=== PATIENT | female | born 1975 | race Caucasian/White ===

== ENCOUNTER 2021-09-02 15:04 | Emergency (ER) | payer OTHER ==
[~2021-09-02] VITALS: Ht 149.9 cm; Wt 57.7 kg
[2021-09-02 15:24] VITALS: BP 150/92
[2021-09-02] MEDS ORDERED: diphenhydrAMINE 50 MG/ML VIAL IVP ONE (16:00)
[2021-09-02] MEDS ORDERED: ONDANSETRON PF 4 MG/2 ML VIAL. IVP ONE (16:00)
[2021-09-02] MEDS ORDERED: IV NORMAL SALINE 1,000ML 1,000 ML IV ONE (16:00)
[2021-09-02] MEDS ORDERED: KETOROLAC 15 MG/ML VIAL. IVP ONE (16:00)
[2021-09-02 16:21] LABS: BASO % 0 % (0-3); EOS % 0 % (0-3); HEMATOCRIT 39.9 % (36.0-47.0); HEMOGLOBIN 13.4 g/dL (12.0-15.5); LYMPH # 1.3 x10^3/uL (1.0-4.8); LYMPH % 11 % (24-48); MEAN CORPUSCULAR HEMOGLOBIN 33 pg (25-35); MEAN CORPUSCULAR HGB CONC 34 g/dL (31-37); MEAN CORPUSCULAR VOLUME 97 fL (79-100); MONO # 0.5 x10^3/uL (0.0-1.1); MONO % 5 % (0-9); NEUT # 9.7 x10^3uL (1.8-7.7); NEUT % 84 % (31-73); PLATELET COUNT 305 x10^3/uL (140-400); RED BLOOD COUNT 4.11 x10^6/uL (3.50-5.40); RED CELL DISTRIBUTION WIDTH 13.7 % (11.5-14.5); WHITE BLOOD COUNT 11.5 x10^3/uL (4.0-11.0)
[2021-09-02 16:24] LABS: CALCIUM 8.3 mg/dL (8.5-10.1); CREATININE 0.7 mg/dL (0.6-1.0); GFR 89.3; POTASSIUM 3.7 mmol/L (3.5-5.1)
[2021-09-02] MEDS ORDERED: ONDA4TAB12 PO (16:58)
--- NOTE | 2021-09-02 17:01 | PHYS DOC ---
Past History Additional Past Medical Histor: GASTRIC BYPASS, BREAST IMPLANTS (SNEHA GASPAR APRN) Past Surgical History: Gastric Bypass (SNEHA GASPAR APRN) General Adult EDM: Chief Complaint: DEHYDRATION HPI: HPI: Patient is a 46-year-old female presents with headache, nausea/vomiting/diarrhea x2 days. Patient states she has been unable to keep any fluids down. Denies taking anything at home for symptoms. Patient denies abdominal pain. "I had bariatric surgery so I get dehydrated very easily". (SNEHA GASPAR APRN) Review of Systems: Review of Systems: Constitutional: Denies fever or chills Eyes: Denies change in visual acuity HENT: Denies nasal congestion or sore throat Respiratory: Denies cough or shortness of breath Cardiovascular: Denies chest pain or edema GI: Denies abdominal pain. Reports nausea/vomiting/diarrhea : Denies dysuria Musculoskeletal: Denies back pain or joint pain Integument: Denies rash Neurologic: Reports headache, denies focal weakness or sensory changes Endocrine: Denies polyuria or polydipsia Lymphatic: Denies swollen glands Psychiatric: Denies depression or anxiety (SNEHA GASPAR APRN) Current Medications: Current Meds: Current Medications Medications (Trade) Dose Ordered Sig/Pablo Start Time Stop Time Status Last Admin Dose Admin Diphenhydramine HCl (Benadryl) 25 mg 1X ONCE 09/02/21 16:00 09/02/21 16:09 DC 09/02/21 16:01 25 MG Fentanyl Citrate (Fentanyl 2ml Vial) 50 mcg 1X ONCE 09/02/21 16:30 09/02/21 16:31 DC 09/02/21 16:40 50 MCG Ketorolac Tromethamine (Toradol 15mg Vial) 15 mg 1X ONCE 09/02/21 16:00 09/02/21 16:09 DC Ondansetron HCl (Zofran) 4 mg 1X ONCE 09/02/21 16:00 09/02/21 16:09 DC 09/02/21 16:00 4 MG Sodium Chloride 1,000 ml @ 1,000 mls/hr 1X ONCE 09/02/21 16:00 09/02/21 16:59 09/02/21 16:00 1,000 MLS/HR (SNEHA GASPAR APRN) Allergies: Allergies: Allergies Coded Allergies Type Severity Reaction Last Updated Verified meperidine Allergy Unknown 09/02/21 Yes (SNEHA GASPAR APRN) Physical Exam: PE: Constitutional: Well developed, well nourished, no acute distress, non-toxic appearance. [] HENT: Normocephalic, atraumatic, bilateral external ears normal, oropharynx moist, no oral exudates, nose normal. [] Eyes: PERRLA, EOMI, conjunctiva normal, no discharge. [] Neck: Normal range of motion, no tenderness, supple, no stridor. [] Cardiovascular:Heart rate regular rhythm, no murmur [] Lungs & Thorax: Bilateral breath sounds clear to auscultation [] Abdomen: Bowel sounds normal, soft, no tenderness, no masses, no pulsatile masses. [] Skin: Warm, dry, no erythema, no rash. [] Back: No tenderness, no CVA tenderness. [] Extremities: No tenderness, no cyanosis, no clubbing, ROM intact, no edema. [] Neurologic: Alert and oriented X 3, normal motor function, normal sensory function, no focal deficits noted. [] Psychologic: Affect normal, judgement normal, mood normal. [] (SNEHA GASPAR APRN) Current Patient Data: Labs: Laboratory Tests Test 09/02/21 15:54 White Blood Count 11.5 x10^3/uL (4.0-11.0) H Red Blood Count 4.11 x10^6/uL (3.50-5.40) Hemoglobin 13.4 g/dL (12.0-15.5) Hematocrit 39.9 % (36.0-47.0) Mean Corpuscular Volume 97 fL (79-100) Mean Corpuscular Hemoglobin 33 pg (25-35) Mean Corpuscular Hemoglobin Concent 34 g/dL (31-37) Red Cell Distribution Width 13.7 % (11.5-14.5) Platelet Count 305 x10^3/uL (140-400) Neutrophils (%) (Auto) 84 % (31-73) H Lymphocytes (%) (Auto) 11 % (24-48) L Monocytes (%) (Auto) 5 % (0-9) Eosinophils (%) (Auto) 0 % (0-3) Basophils (%) (Auto) 0 % (0-3) Neutrophils # (Auto) 9.7 x10^3uL (1.8-7.7) H Lymphocytes # (Auto) 1.3 x10^3/uL (1.0-4.8) Monocytes # (Auto) 0.5 x10^3/uL (0.0-1.1) Eosinophils # (Auto) 0.0 x10^3/uL (0.0-0.7) Basophils # (Auto) 0.0 x10^3/uL (0.0-0.2) Sodium Level 138 mmol/L (136-145) Potassium Level 3.7 mmol/L (3.5-5.1) Chloride Level 100 mmol/L (98-107) Carbon Dioxide Level 25 mmol/L (21-32) Anion Gap 13 (6-14) Blood Urea Nitrogen 10 mg/dL (7-20) Creatinine 0.7 mg/dL (0.6-1.0) Estimated GFR (Cockcroft-Gault) 89.3 Glucose Level 137 mg/dL (70-99) H Calcium Level 8.3 mg/dL (8.5-10.1) L Vital Signs: Vital Signs Date Time Temp Pulse Resp B/P (MAP) Pulse Ox O2 Delivery O2 Flow Rate FiO2 09/02/21 16:40 20 Room Air 09/02/21 15:24 96.8 103 150/92 (111) (SNEHA GASPAR APRN) EKG: EKG: [] (SNEHA GASPAR APRN) Radiology/Procedures: Radiology/Procedures: [] (SNEHA GASPAR APRN) Heart Score: C/O Chest Pain: No Risk Factors: Risk Factors: DM, Current or recent (<one month) smoker, HTN, HLP, family hist ory of CAD, obesity. Risk Scores: Score 0 - 3: 2.5% MACE over next 6 weeks - Discharge Home Score 4 - 6: 20.3% MACE over next 6 weeks - Admit for Clinical Observation Score 7 - 10: 72.7% MACE over next 6 weeks - Early Invasive Strategies (SNEHA GASPAR APRN) Course & Med Decision Making: Course & Med Decision Making Pertinent Labs and Imaging studies reviewed. (See chart for details) [] 38-year-old female presents with headache, nausea/vomiting/diarrhea for 2 days. Patient is concerned about pain coming dehydrated. Patient does have a history of migraines. Patient denies thunderclap. Denies taking thing at home for symptoms. Patient given Benadryl, fentanyl, Zofran, NS bolus. Patient states her symptoms have improved. Patient was likely has gastroenteritis which is causing symptoms. Patient denies pain. Patient being sent home with nausea medication. Discussed return precautions in length with patient. Patient verbalized understanding of discharge instructions. (SNEHA GASPAR APRN) Course & Med Decision Making I was the Attending physician on the above date of service of this patient. This patient was evaluated, examined, treated, and dispositioned from the emergency department by the mid-level practitioner. Although I was working at the time , no assistance was requested. Electronically signed, Rocio Bautista DO (ROCIO BAUTISTA DO) Yordy Disclaimer: Yordy Disclaimer: This electronic medical record was generated, in whole or in part, using a voice recognition dictation system. (SNEHA GASPAR APRN) Departure Departure: Impression: Primary Impression: Nausea & vomiting Qualified Codes: R11.14 - Bilious vomiting Disposition: 01 HOME / SELF CARE / HOMELESS Condition: STABLE Referrals: MARY APPLE DO, MPH (PCP) Patient Instructions: Nausea and Vomiting, [id number] Additional Instructions: You were seen in the emergency room for nausea/vomiting/diarrhea, headache. Your pain and nausea was treated in the ER. Please make sure you are drinking plenty of fluids. Return emergency room if you have worsening symptoms or concerns. EMERGENCY DEPARTMENT GENERAL DISCHARGE INSTRUCTIONS Thank you for coming to [facility] (ED) today and trusting us with you care. We trust that you had a positivie experience in our Emergency Department. If you wish to speak to the department management, you may call the director at [phone]. YOUR FOLLOW UP INSTRUCTIONS ARE FOLLOWS: 1. Do you have a private Doctor? If you do not have a private doctor, please ask for a resource list of physicians or clinics that may be able to assist you with follow up care. 2. The Emergency Physician has interpreted your x-rays. The X-Ray specialist will also review them. If there is a change in the findings, you will be notified in 48 hours when at all possible. 3. A lab test or culture has been done, your results will be reviewed and you will be notified if you need a change in treatment. ADDITIONAL INSTRUCTIONS AND INFORMATION: 1. Your care today has been supervised by a physician who is specially trained in emergency care. Many problems require more than one evaluation for a complete diagnosis and treatment. We recommend that you schedule your follow up appointment as recommended to ensure complete treatment of you illness or injury. If you are unable to obtain follow up care and continue to have a problem, or if your condition worsens, we recommend that you return to the ED. 2. We are not able to safely determine your condition over the phone nor are we able to give sound medical advice over the phone. For these safety reasons, if you call for medical advice we will ask you to come to the ED for further evaluation. 3. If you have any questions regarding these discharge instructions please call the ED at [phone]. SAFETY INFORMATION: In the interest of safety, wellness, and injury prevention; we encourage you to wear your sealbelt, if you smoke; quite smoking, and we encourage family to use a protective helmet for bicycling and other sporting events that present an increased risk for head injury. IF YOUR SYMPTOMS WORSEN OR NEW SYMPTOMS DEVELOP, OR YOU HAVE CONCERNS ABOUT YOUR CONDITION; OR IF YOUR CONDITION WORSENS WHILE YOU ARE WAITING FOR YOUR FOLLOW UP APPOINTMENT; EITHER CONTACT YOUR PRIMARY CARE DOCTOR, THE PHYSICIAN WHOSE NAME AND NUMBER YOU WERE GIVEN, OR RETURN TO THE ED IMMEDIATELY. Scripts Ondansetron (ONDANSETRON ODT) 4 Mg Tab.rapdis 4 MG PO PRN Q8HRS for nausea for 3 Days, #10 TAB Prov: SNEHA GASPAR APRN 09/02/21 SNEHA GASPAR APRN Sep 02, 2021 17:01 ROCIO BAUTISTA DO Sep 06, 2021 06:45
== END 2021-09-02 17:17 | disposition home or self-care (01) ==
LOC: ER 15:04
DX: R11.2 Nausea with vomiting, unspecified (principal); R19.7 Diarrhea, unspecified; R51.9 Headache, unspecified; Z98.84 Bariatric surgery status; Z88.8 Allergy status to other drugs, medicaments and biological substances
CPT/HCPCS: 36415; 80048; 85025; 96361; 96374; 96375; 99284; J1200; J2405; J3010; J7030